=== PATIENT | female | born 2000 | race Caucasian/White ===

== ENCOUNTER 2020-03-02 11:10 | Outpatient (CLI) | payer BC, SELFPAY ==
[2020-03-02] VITALS (7 sets, daily range): BP systolic 118–133; BP diastolic 70–82; PULSE 68–93; TEMP 36.8; BMI 33.5
[2020-03-02 11:57] LABS: Hemoglobin 12.4 g/dL (12.0-15.0); Mean Corp Hgb Conc 33.5 g/dL (32-36); Mean Corpuscular Hgb 31.5 pg (27.0-32.0); Mean Corpuscular Volume 93.9 fL (81-99); Mean Platelet Vol. 10.5 fl (6.2-12.0); Platelet Count 228 K/mm3 (150-450); RBC Distribution Width CV 12.7 % (11.6-14.6); RBC Distribution Width SD 42.5 fl (35.1-43.9); Red Blood Count 3.94 M/mm3 (4.2-5.4); White Blood Count 9.1 K/mm3 (4.4-11.0)
[2020-03-02 12:02] LABS: Protein:Creat Ratio 225 mg/g CRE (0-200)
[2020-03-02 12:07] LABS: AST(SGOT) 17 U/L (15-37); Alanine Aminotransfer ALT/SGPT 17 U/L (13-56); Creatinine, Serum 0.59 mg/dL (0.55-1.02); EST Glomerular Filtration Rate 136 mL/min (>60); Est Glom Filt Rate - Afr Amer 164 mL/min (>60); Estimated Creatinine Clearance 119.29 ml/min; Uric Acid 3.9 mg/dL (2.6-6.0)
[2020-03-02 12:52] LABS: International Normalized Ratio 0.9; Partial Thromboplast Time 24.4 Seconds (24.1-36.2)
--- NOTE | 2020-03-02 13:01 | OB.TRI.NOTE ---
- Problem List (1) Headache Status: Acute (2) Blood pressure elevated without history of HTN Status: Acute History of Present Illness Date of Service: 03/02/20 Was patient seen by the physician?: Yes Reason For Visit: R/O PRE Date of Service: 03/02/20 Final LISET: 04/02/20 Gestational age: 35 Weeks and 4 Days History of Present Illness: Patient is a at 35.4 weeks gestation sent in from office for increased BP at home and woke up with headache today. BP elevated in office and protein noted in urine. No epigastric pain or vision changes. Rating headache 5/10 and has not taken Tylenol yet today. Allergies Penicillins Allergy (Verified 03/02/20 11:52) Hives Laboratory Studies: Laboratory Tests 03/02/20 03/02/20 03/02/20 Range/Units 11:30 11:30 11:30 WBC (4.4-11.0) K/mm3 RBC (4.2-5.4) M/mm3 Hgb (12.0-15.0) g/dL Hct (37-47) % MCV (81-99) fL MCH (27.0-32.0) pg MCHC (32-36) g/dL RDW Std Deviation (35.1-43.9) fl RDW Coeff of Marques (11.6-14.6) % Plt Count (150-450) K/mm3 MPV (6.2-12.0) fl PT 12.0 (11.7-14.9) SECONDS INR 0.9 APTT 24.4 (24.1-36.2) Seconds Creatinine 0.59 (0.55-1.02) mg/dL Estim Creat Clear Calc 119.29 ml/min Est GFR (MDRD) Af Amer 164 (>60) mL/min Est GFR (MDRD) Non-Af 136 (>60) mL/min Uric Acid 3.9 (2.6-6.0) mg/dL AST 17 (15-37) U/L ALT 17 (13-56) U/L U Random Total Protein 14.0 H (<11.9) mg/dL Urine Creatinine 62.20 (NO RANGE EST.) mg/dL Protein/Creatinin Ratio 225 H (0-200) mg/g CRE 03/02/20 Range/Units 11:30 WBC 9.1 (4.4-11.0) K/mm3 RBC 3.94 L (4.2-5.4) M/mm3 Hgb 12.4 (12.0-15.0) g/dL Hct 37.0 (37-47) % MCV 93.9 (81-99) fL MCH 31.5 (27.0-32.0) pg MCHC 33.5 (32-36) g/dL RDW Std Deviation 42.5 (35.1-43.9) fl RDW Coeff of Marques 12.7 (11.6-14.6) % Plt Count 228 (150-450) K/mm3 MPV 10.5 (6.2-12.0) fl PT (11.7-14.9) SECONDS INR APTT (24.1-36.2) Seconds Creatinine (0.55-1.02) mg/dL Estim Creat Clear Calc ml/min Est GFR (MDRD) Af Amer (>60) mL/min Est GFR (MDRD) Non-Af (>60) mL/min Uric Acid (2.6-6.0) mg/dL AST (15-37) U/L ALT (13-56) U/L U Random Total Protein (<11.9) mg/dL Urine Creatinine (NO RANGE EST.) mg/dL Protein/Creatinin Ratio (0-200) mg/g CRE Review of Systems Constitutional: Denies: Chills, Fever, Weight Change HEENT: Denies: Sinus Congestion, Sinus Drainage Cardiovascular: Denies: Chest Pain, Palpitations Respiratory: Denies: Cough, Shortness of breath at rest, Sputum production Gastrointestinal: Denies: Abdominal Pain, Nausea, Vomiting Genitourinary: Denies: Dysuria Neurological: Denies: Numbness, Tingling, Focal weakness Physical Exam Vitals: Vital Signs Temp Pulse BP 98.2 F 81 121/71 H 03/02/20 11:36 03/02/20 12:50 03/02/20 12:50 General: Alert Cardiovascular: Regular rate Lungs: Clear to auscultation, Normal air movement Abdomen: Non Tender, Non-Distended, No Hepato-splenomegaly Neurological: Cranial nerves II-XII grossly intact, Deep Tendon Reflexes 2+/4 and Symmetrical NST - FHR Rate Baby A Baseline: 140 Variability:: Moderate Accelerations:: 15 x 15 Decelerations:: None NST Reactive:: Yes FHR Category:: Category I Uterine Activity:: irregular contractions Impression/Plan at 35.4 weeks gestation with some increased blood pressures at home and dull headache. Pre-E labs within normal range P/C ratio < 300 Patient to follow up in office Thursday for BP check Discharge home with preeclampsia precautions Dr. Rooney agrees with plan of care
== END 2020-03-02 13:25 | disposition home or self-care (01) ==
LOC: WPOUT 11:25 → WP 11:26
PROVIDERS: Referring Provider Advanced Practice Midwife; Visit Provider Advanced Practice Midwife
DX: O26.893 Other specified pregnancy related conditions, third trimester (principal); Z3A.35 35 weeks gestation of pregnancy; R51 Headache
CPT/HCPCS: 36415; 59025; 59050; 82565; 82570; 84156; 84450; 84460; 84550; 85027; 85610; 85730; 99218; G0378

== ENCOUNTER → 2020-03-07 | Outpatient (CLI) | payer BC, SELFPAY ==
[2020-03-02 11:39] VITALS: BMI 33.5
== END | disposition home or self-care (01) ==
LOC: LABSPEC 11:52
PROVIDERS: Referring Provider Obstetrics & Gynecology; Visit Provider Obstetrics & Gynecology
DX: Z11.59 Encounter for screening for other viral diseases (principal)
CPT/HCPCS: 87635; G2023; U0003

== ENCOUNTER 2020-03-12 18:55 | Inpatient (IN) | payer BC, SELFPAY ==
[2020-03-02 11:39] VITALS: BMI 33.5
[2020-03-12 19:57] LABS: Absolute Lymphocyte Count 1.51 X10^3/uL (0.83-4.51); Absolute Neutrophil Count 5.9 X10^3/uL (2.0-7.7); Basophil# 0.02 X10^3/uL; Basophil% 0.2 % (0-1); Eosinophil# 0.06 X10^3/uL; Eosinophils% 0.7 % (0-5); Hematocrit 33.1 % (37-47); Hemoglobin 11.1 g/dL (12.0-15.0); Lymphocyte # 1.51 X10^3/ul (4.0); Lymphocyte % 18.8 % (19-41); Mean Corp Hgb Conc 33.5 g/dL (32-36); Mean Corpuscular Hgb 31.2 pg (27.0-32.0); Mean Platelet Vol. 11.2 fl (6.2-12.0); Monocyte% 6.2 % (0-10); NRBC Flagged by Analyzer 0 % (0-5); Neutrophil # 5.85 X10^3/uL (2.7-7.7); Neutrophil % 73.1 % (47-70); Platelet Count 211 K/mm3 (150-450); RBC Distribution Width CV 12.2 % (11.6-14.6); RBC Distribution Width SD 41.5 fl (35.1-43.9); Red Blood Count 3.56 M/mm3 (4.2-5.4)
[2020-03-12 20:07] VITALS: O2SAT 81
[2020-03-12 20:08] VITALS: TEMP 36.7
[2020-03-12 20:09] VITALS: BP 131/85; PULSE 71; O2SAT 98
[2020-03-12 20:19] VITALS: BMI 33.5
[2020-03-12] MEDS: miSOPROStol 100 MCG TABLET 25 MCG VAGINAL (21:10)
[2020-03-12 22:25] VITALS: TEMP 37
[2020-03-12 22:26] VITALS: BP 131/81; PULSE 71; O2SAT 99
[2020-03-13] VITALS (53 sets, daily range): BP systolic 107–172; BP diastolic 56–110; PULSE 51–240; TEMP 36.7–37.6; O2SAT 82–100
[2020-03-13] MEDS: miSOPROStol 25 MCG TABLET VAGINAL ×2 (01:12→05:11)
[2020-03-13] MEDS: 0.9% Normal Saline Single 100 ML IV.SOLN. IY (08:04)
--- NOTE | 2020-03-13 08:33 | PCM.HP.OB ---
History Date of Admission: 03/13/20 Final LISET: 04/02/20 Gestational age: 37 Weeks and 1 Days History of this : This is a 19 year-old, G 1P0 @ 37.1 weeks- GEST HTN here for IOL Allergies Penicillins Allergy (Verified 03/12/20 20:21) Hives Home Medications: Home Medications Ferrous Sulfate [Iron] 325 mg PO DAILY 03/02/20 Pnv No.95/Ferrous Fum/Folic AC [ Caplet] 1 tablet PO DAILY 03/02/20 Smoking Status: Never smoker Alcohol: None Number of Fetus(es): 1 History Past Pregnancies: Past Pregnancies Delivery Date Name GA/ Weeks Outcome Route Wt Infant Sex Labor Length Anesthesia Delivery Location Provider FOB Expected Delivery Method: Spontaneous Vaginal Review of Systems Constitutional: Denies: Anorexia Eyes: Denies: Blurred vision, Pain, Vision Change HEENT: Denies: Head Aches Cardiovascular: Denies: Chest Pain Respiratory: Denies: Cough, Shortness of Breath Gastrointestinal: Denies: Abdominal Pain Physical Exam Vitals: Vital Signs Temp Pulse BP Pulse Ox 98.1 F 80 143/110 H 99 03/13/20 07:30 03/13/20 08:05 03/13/20 08:05 03/13/20 07:19 General: Alert, Oriented x3 Abdomen: Soft, Non Tender, Non-Distended, Gravid Neurological: Cranial nerves II-XII grossly intact [employer]ANDB[employer] OPERATOR: Normal external genitalia Estimated gestational size: Appropriate for gestational size Presentation: Cephalic Cervix Dilation (cm): 1 Station: -3 Effacement (%): 50 Assessment/Plan All Active Problems Headache (Acute) Blood pressure elevated without history of HTN (Acute) This is a 19 year-old, @ 37.1 weeks- IOL for GEST HTN 1) admit to l&D 2) monitor fhr/toco 3) anticipate 4) s/p cytotec overnight- Transcervical stone placed- will start pitocin 5) Epidural if requested for pain
[2020-03-13] MEDS: Acetaminophen 325 MG Tablet PO (09:10)
[2020-03-13] MEDS: 0.9% Saline Lock 10 ML Syringe IV ×2 (10:29→23:11)
[2020-03-13] MEDS: Oxytocin 30 units/NS 500 ml 30 UNITS/500 ML IV.SOLN IV (10:33)
[2020-03-13] MEDS: Lactated Ringers 1,000 ML 50 ML IV (10:33)
--- NOTE | 2020-03-13 17:47 | PCM.PN.BLA ---
Progress Note pt seen at bedside, doing well. VE performed- 3-4/65/-2, AROM performed- large amt of clear fluid. IUPC and IFM placed. STROKE Vital Signs/Narrative: Vital Signs Temp Pulse BP Pulse Ox 03/13/20 17:28 74 135/84 H 03/13/20 17:27 70 141/90 H 03/13/20 16:10 240 H 82 03/13/20 16:09 99.0 F 136/77 H 03/13/20 15:57 71 99 03/13/20 15:09 98.8 F 74 129/79 H 99 03/13/20 14:15 66 98 03/13/20 14:14 99.0 F 109/56 L
[2020-03-13] MEDS: Lactated Ringers 500 ML 999 ML IV ×2 (18:08→22:14)
[2020-03-13] MEDS: fentaNYL-bupivacaine (epidural) 100 ML BAG EPIDURAL ×2 (19:35→23:19)
[2020-03-13] MEDS: Lactated Ringers 1,000 ML 200 ML IV (22:12)
[2020-03-13] MEDS: Amnioinfusion- 0.9% NS 1,000 ML IV.SOLN. 300 ML INTRA-UTER (23:10)
[2020-03-14] VITALS (33 sets, daily range): BP systolic 77–156; BP diastolic 52–93; PULSE 30–241; RESP 16; TEMP 36.4–39.2; O2SAT 80–100
[2020-03-14] MEDS: Lactated Ringers 1,000 ML 200 ML IV ×3 (03:33→15:24)
[2020-03-14] MEDS: fentaNYL-bupivacaine (epidural) 100 ML BAG EPIDURAL ×3 (03:48→15:18)
[2020-03-14] MEDS: Lactated Ringers 500 ML 999 ML IV (06:03)
[2020-03-14] MEDS: Amnioinfusion- 0.9% NS 1,000 ML IV.SOLN. 1000 ML INTRA-UTER (09:53)
[2020-03-14] MEDS: Ondansetron 4 MG/2 ML Vial IV (11:54)
[2020-03-14] MEDS: Acetaminophen 325 MG Tablet PO (12:45)
[2020-03-14] MEDS: Oxytocin 30 units/NS 500 ml 30 UNITS/500 ML IV.SOLN 334 UNITS IV (16:20)
--- NOTE | 2020-03-14 16:42 | PCM.OPRPT ---
Vaginal Delivery Maternal Presentation: Medically Indicated Induction Method of Induction: Pitocin, Guido Bulb, Amniotomy, Cytotec Medical Reason for Induction: - - gestational htn Amniotic Membrane Rupture Type: Artificial Amniotic Fluid Description: Clear Final LISET: 04/02/20 Final LISET Source: US <20 weeks Gestational age: 37 Weeks and 2 Days Date of Procedure: 03/14/20 Pre-Operative Diagnosis: labor, suspected triple I, maternal exhaustion, prolonged declerations Post-Operative Diagnosis: same Surgery/ Procedure Performed: Vacuum Assisted Vaginal Delivery - outlet Type of Anesthesia: Epidural Description of Procedure: Patient was pushing with excellent effort. She was pushing to +4 station. The scalp was labia approximately 2 cm. Position was MARY. Epidural was adequate and a Guido catheter was in place. Estimated weight was less than 4500 g clinically and pelvis was adequate to expect vaginal delivery. Fetus was having intermittent prolonged decelerations with pushing. Patient was also getting very fatigued but was making good progress during the second stage. I assessed the patient and after discussion of risk benefits and alternatives to attempted vacuum assisted vaginal delivery, patient and her partner agreed to proceed. Vacuum was placed on the flexion point and pressure was created to 550 mmHg. I pulled with 1 contraction to . Patient was then given a brief rest and the vacuum was removed and she pushed and delivered the baby spontaneously over second-degree perineal laceration. There were no pop offs. There was a tight nuchal cord that I could not easily reduce but is able to push it behind the anterior shoulder and the anterior shoulder delivered with gentle traction and maternal pushing without difficulty. The cord then slipped the rest of the way behind the baby is the remainder the infant delivered with maternal pushing efforts only. The was placed on the maternal abdomen where it was stimulated and was vigorous. The cord was clamped and cut after 1 minute. The left vaginal sulcus tear and second-degree perineal laceration were repaired with 2-0 Vicryl suture in a running standard fashion without difficulty. Cervix and the remainder the vagina were intact. Sponge and needle counts were correct. Vaginal sweep was completed by me. Presentation: MARY Placental Delivery Description: Spontaneous Placenta Disposition: [facility] Cord Vessel Description: 3 Vessels Nuchal Cord Compression: Without compression Cord Gases drawn per routine: ABG, VBG Cord Entanglement: Around neck x 1, tight Drain: Guido to straight drain Estimated Blood Loss: 500 Infant A gender: Male Episiotomy Description: None Laceration: Vaginal Extension/lac - left, 2nd degree - perineal Medications given after delivery: IV Pitocin Complications: None
[2020-03-14] MEDS: Naproxen 250 MG Tablet 500 MG PO (17:56)
[2020-03-14] MEDS: Acetaminophen 500 MG Tablet 1000 MG PO (17:56)
[2020-03-14] MEDS: 0.9% Saline Lock 10 ML Syringe IV ×2 (18:58→21:43)
[2020-03-15] VITALS (10 sets, daily range): BP systolic 103–128; BP diastolic 57–76; PULSE 72–103; RESP 14–16; TEMP 36.3–37.1; O2SAT 99
[2020-03-15] MEDS: 0.9% Saline Lock 10 ML Syringe IV ×2 (04:45→05:31)
--- NOTE | 2020-03-15 09:00 | PCM.PN.OB ---
Subjective: Denies MONSIVAIS or visual changes or epigastric pain. Pain well controlled, average lochia - Physical Exam Vitals/I&O's: Vital Signs Temp Pulse Resp BP Pulse Ox 97.3 F L 86 14 123/57 H 100 03/15/20 03:17 03/15/20 08:39 03/15/20 03:17 03/15/20 08:39 03/14/20 17:19 Oxygen Delivery Method Room Air Weight: 83.28 kg Body Mass Index (BMI) 33.5 Intake and Output for Last 24 Hours 03/13/20 03/14/20 03/15/20 23:59 23:59 23:59 Intake Total 3536.14 / 3536.14 5091.26 / 5091.26 106 / 106 Output Total 1200 / 1200 2049 / 2049 600 / 600 Balance 2336.14 / 2336.14 3041.26 / 3041.26 -494 / -494 General: Alert, Cooperative, No apparent distress Current Medications Acetaminophen (Tylenol) 325 - 650 mg PO Q4H PRN PRN PRN Reason: Pain Score 1-3/10 Last Admin: 03/14/20 12:45 Dose: 650 mg Documented by: Acetaminophen (Tylenol) 1,000 mg PO Q8H PRN PRN PRN Reason: Pain Score 1-3/10 Last Admin: 03/14/20 17:56 Dose: 1,000 mg Documented by: Al Hydroxide/Mg Hydroxide (Mylanta Ii) 15 - 30 ml PO Q4H PRN PRN PRN Reason: INDIGESTION Bisacodyl (Dulcolax) 10 mg RECTAL UD PRN PRN Reason: If no BM Citric Acid/Sodium Citrate (Bicitra) 30 ml PO X1 PRN PRN Reason: Section Dibucaine (Dibucaine) 1 applic TOPICAL TID PRN PRN; Protocol PRN Reason: Discomfort Ephedrine Sulfate () 10 mg IV Q10M PRN PRN Reason: hypotension Ephedrine Sulfate () 10 mg IM Q30M PRN PRN Reason: hypotension Fentanyl Citrate (Sublimaze (100mcg Ampule)) 25 - 50 mcg IV Q2H PRN PRN PRN Reason: Pain Score 4-10/10 Fentanyl/Bupivacaine/Sodium Chlor () 0 ml EPIDURAL UD YOVANNY; Protocol Last Admin: 03/14/20 15:18 Dose: 100 ml Documented by: Ferrous Sulfate (Ferrous Sulfate) 325 mg PO 1200 YOVANNY Hydrocortisone (Hytone) 1 applic TOPICAL TID PRN PRN; Protocol PRN Reason: Discomfort Lactated Ringer's () 500 mls @ 999 mls/hr IV .Q31M PRN PRN Reason: Epidural Last Infusion: 03/13/20 18:40 Dose: Infused Documented by: Lactated Ringer's () 500 mls @ 999 mls/hr IV .Q31M PRN PRN Reason: Corrective Measures Last Infusion: 03/14/20 06:34 Dose: Infused Documented by: Lactated Ringer's () 1,000 mls @ 50 mls/hr IV .Q20H [facility] Last Admin: 03/15/20 08:29 Dose: Not Given Documented by: Oxytocin/Sodium Chloride () 30 units in 500 mls @ 2 mls/hr IV .Q250H [facility] Last Infusion: 03/14/20 16:18 Dose: Infused Documented by: Naloxone HCl 4 mg/ Dextrose 504 mls @ 0 mls/hr IV .Q0M PRN; Protocol PRN Reason: To maintain Resp. rate >10 Clindamycin Phosphate 900 mg/ (Dextrose) 106 mls @ 150 mls/hr IV Q8H [facility] Last Infusion: 03/15/20 05:31 Dose: Infused Documented by: Methylergonovine Maleate (Methergine) 0.2 mg IM X1 PRN PRN Reason: Excess bleeding/uterine atony Nalbuphine HCl (Nubain) 5 mg IV Q3H PRN PRN PRN Reason: ITCHING Naloxone HCl (Narcan) 0.02 mg IV Q1M PRN PRN Reason: RR< 10 AND PT UNRESPONSIVE Naproxen (Naprosyn) 500 mg PO Q8H PRN PRN PRN Reason: Pain Score 1-3/10 Last Admin: 03/14/20 17:56 Dose: 500 mg Documented by: Ondansetron HCl (Zofran) 4 mg IV Q4H PRN PRN PRN Reason: NAUSEA Last Admin: 03/14/20 11:54 Dose: 4 mg Documented by: Ondansetron HCl (Zofran) 4 mg IV Q4H PRN PRN PRN Reason: Nausea Multivit/Folic Acid/Iron (Prenatabs Fa) 1 tablet PO DAILY@1200 YOVANNY Prochlorperazine Edisylate (Compazine Iv) 10 mg IV Q6H PRN PRN PRN Reason: NAUSEA Senna/Docusate Sodium (Senokot-S, Bonnie-Colace) 1 - 2 tablet PO DAILY PRN PRN PRN Reason: Constipation Simethicone (Mylicon) 80 mg PO PCHS PRN PRN Reason: Indigestion/Stomach pain Sodium Chloride () 10 - 40 ml IV X1 PRN PRN Reason: SALINE FLUSH Last Admin: 03/15/20 05:31 Dose: 10 ml Documented by: Sodium Chloride () 1,000 ml INTRA-UTER UD YOVANNY Last Admin: 03/15/20 08:30 Dose: Not Given Documented by: Sodium Chloride () 5 - 15 ml IV UD PRN PRN Reason: SALINE FLUSH Last Admin: 03/14/20 18:58 Dose: 10 ml Documented by: Medical Necessity - Tobacco Use Smoking Status: Never smoker Assessment/Plan All Active Problems Headache (Acute) Blood pressure elevated without history of HTN (Acute) PPD#1 doing well afebrile doing well routine care BP stable likely d/c tomorrow
[2020-03-15] MEDS: Ferrous Sulfate 325 MG Tablet PO (14:49)
[2020-03-16 02:48] VITALS: BP 120/76; PULSE 86
[2020-03-16 02:50] VITALS: BP 120/76; PULSE 86; RESP 16; TEMP 36.8; O2SAT 96
[2020-03-16 08:20] VITALS: BP 121/78; PULSE 71
[2020-03-16 09:10] VITALS: BP 121/78; PULSE 70; RESP 17; TEMP 36.8
--- NOTE | 2020-03-16 10:33 | PCM.PN.OB ---
Subjective: Doing well per patient and nursing staff. Ambulating and taking PO without difficulty. Voiding and passing flatus. . No complaints - Physical Exam Vitals/I&O's: Vital Signs Temp Pulse Resp BP Pulse Ox 98.2 F 70 17 121/78 H 96 03/16/20 09:10 03/16/20 09:10 03/16/20 09:10 03/16/20 09:10 03/16/20 02:50 Oxygen Delivery Method Room Air Weight: 183 lb 9.6 oz Body Mass Index (BMI) 33.5 Intake and Output for Last 24 Hours 03/14/20 03/15/20 03/16/20 23:59 23:59 23:59 Intake Total 5091.26 / 5091.26 106 / 106 Output Total 2049 / 2049 600 / 600 Balance 3041.26 / 3041.26 -494 / -494 General: Alert, Oriented x3, Cooperative HEENT: Atraumatic, Normocephalic Neck: Trachea Midline Lungs: Clear to auscultation, Normal air movement, No rhonchi, No wheeze Cardiovascular: Regular rate, Regular Rhythm, No murmurs Abdomen: Bowel Sounds Present, Non Tender - fundus firm 2 below U Extremities: Edema - +1 BLE edema pitting. No clonus Neurological: Deep Tendon Reflexes 2+/4 and Symmetrical Psych/Mental Status: Normal Affect, Appropriate Current Medications Acetaminophen (Tylenol) 1,000 mg PO Q8H PRN PRN PRN Reason: Pain Score 1-3/10 Last Admin: 03/14/20 17:56 Dose: 1,000 mg Documented by: Al Hydroxide/Mg Hydroxide (Mylanta Ii) 15 - 30 ml PO Q4H PRN PRN PRN Reason: INDIGESTION Bisacodyl (Dulcolax) 10 mg RECTAL UD PRN PRN Reason: If no BM Citric Acid/Sodium Citrate (Bicitra) 30 ml PO X1 PRN PRN Reason: Section Dibucaine (Dibucaine) 1 applic TOPICAL TID PRN PRN; Protocol PRN Reason: Discomfort Ephedrine Sulfate () 10 mg IV Q10M PRN PRN Reason: hypotension Ephedrine Sulfate () 10 mg IM Q30M PRN PRN Reason: hypotension Ferrous Sulfate (Ferrous Sulfate) 325 mg PO 1200 YOVANNY Last Admin: 03/15/20 14:49 Dose: 325 mg Documented by: Hydrocortisone (Hytone) 1 applic TOPICAL TID PRN PRN; Protocol PRN Reason: Discomfort Naloxone HCl 4 mg/ Dextrose 504 mls @ 0 mls/hr IV .Q0M PRN; Protocol PRN Reason: To maintain Resp. rate >10 Naloxone HCl (Narcan) 0.02 mg IV Q1M PRN PRN Reason: RR< 10 AND PT UNRESPONSIVE Naproxen (Naprosyn) 500 mg PO Q8H PRN PRN PRN Reason: Pain Score 1-3/10 Last Admin: 03/14/20 17:56 Dose: 500 mg Documented by: Ondansetron HCl (Zofran) 4 mg IV Q4H PRN PRN PRN Reason: NAUSEA Last Admin: 03/14/20 11:54 Dose: 4 mg Documented by: Ondansetron HCl (Zofran) 4 mg IV Q4H PRN PRN PRN Reason: Nausea Multivit/Folic Acid/Iron (Prenatabs Fa) 1 tablet PO DAILY@1200 YOVANNY Last Admin: 03/15/20 14:49 Dose: 1 tablet Documented by: Prochlorperazine Edisylate (Compazine Iv) 10 mg IV Q6H PRN PRN PRN Reason: NAUSEA Senna/Docusate Sodium (Senokot-S, Bonnie-Colace) 1 - 2 tablet PO DAILY PRN PRN PRN Reason: Constipation Simethicone (Mylicon) 80 mg PO PCHS PRN PRN Reason: Indigestion/Stomach pain Sodium Chloride () 10 - 40 ml IV X1 PRN PRN Reason: SALINE FLUSH Last Admin: 03/15/20 05:31 Dose: 10 ml Documented by: Sodium Chloride () 5 - 15 ml IV UD PRN PRN Reason: SALINE FLUSH Last Admin: 03/14/20 18:58 Dose: 10 ml Documented by: Medical Necessity - Tobacco Use Smoking Status: Never smoker Assessment/Plan All Active Problems Headache (Acute) Blood pressure elevated without history of HTN (Acute) This is a 19 year-old, PPD #2 Vacuum extracted vaginal delivery Gestational HTN Suspected Triple I P: 1) Routine and instructions reviewed 2) Will get OTC Motrin for pain relief 3) Follow up in 3 days in office for BP check 4) Follow up in 2 weeks for virtual visit and 6 weeks for visit 5) Discharge home today.
--- NOTE | 2020-03-16 10:35 | DCINST_ITS ---
Discharge Diet: No Restrictions Discharge Activity: Return to Normal Activity, May not drive while taking narcotic pain medications., May Shower May resume sexual activity in: 4-6 weeks Weight Bearing Status: Full weight bearing Additional Activity Instructions:: Nothing in the vagina for 4-6 weeks. You may return to work/school in 6 weeks. Call your doctor if your incision/area has: Continuous Slow Oozing, Sudden Increased Bleeding, Increased Pain/ Swelling, Increased Redness, Foul Smelling Discharge Call your doctor if you observe: Fever of 101 or Higher, Inability to urinate, Inability to have a bowel movement, Using more than one pad per hour, Shortness of breath, Dizziness, Chest pain, Increased palpitations (irregular heartbeat), Calf discomfort, Uncontrolled pain Additional Instructions: If you experience any of the following, contact your healthcare provider. * Bleeding that soaks a pad every hour for 2 hours * Fever 100.4 or higher * Unrelieved incision or abdominal pain * Swelling, redness, discharge or bleeding from your incision or episiotomy site * Your incision begins to separate * Problems urinating (including inability to urinate or burning while urinating). * Visual changes * Severe headache * Flu-like symptoms * Pain or redness in one of both of your breasts * Pain, warmth, tenderness or swelling in your legs, especially the calf area * Frequent nausea and vomiting * Symptoms of depression or anxiety If you experience any of the following, call 911 or go to the nearest Emergency Room. * Chest pain * Problems breathing * Seizure activity * Partial or complete paralysis of a body part, slurred speech, weakness or drooping of the face, or a sudden inability to walk or hold your balance Allergies/Adverse Reactions: Allergies Penicillins Allergy (Verified 03/12/20 20:21) Hives Medications to take at Discharge Ferrous Sulfate [Iron] 325 mg PO DAILY 03/02/20 Pnv No.95/Ferrous Fum/Folic AC [ Caplet] 1 tablet PO DAILY 03/02/20 Please Follow Up With: Mary Jo Aguirre MD When: Call to make an appointment with your doctor in 3 days for blood pressure check, 2 weeks for virtual visit, 6 weeks. Primary Care Physician: Pilar Julian MD [Primary Care Provider] - Test Results: Test results from this visit will be discussed in further detail at your follow- up appointment, if applicable.
--- NOTE | 2020-03-19 08:05 | PCM.DC.SUM ---
Discharge Date and Diagnosis Date of Admission: 03/12/20 Date of Discharge: 03/16/20 Hospital Course and Treatment Consultations 03/12/20 19:13 Consult: Anesthesia Routine Comment: Reason For Exam: Labor Operations: - - Outlet vacuum-assisted vaginal delivery with second-degree perineal laceration and left vaginal vault sulcus tear repaired. Procedures: None Summary of Care Provided: Martina is a 19-year-old nulliparous female who was admitted on 03/12/2024 Cytotec cervical ripening for gestational hypertension. She underwent Cytotec ripening overnight. The next morning she had a Guido catheter placed and was started on Pitocin. Duction progressed very slowly she entered the active phase of labor. Her active phase progressed normally. She progressed to complete and pushing. After several hours she was exhausted and was having variables with each pushing effort. She had progressed to plus 4 out of 5 station and the position was MARY. I offered her trial of outlet assisted vacuum delivery. She agreed to proceed. This was successful. Patient had a second-degree perineal laceration and left vaginal sulcus tear that were repaired and hemostatic. the patient's course was unremarkable. Her blood pressures were stable. day #2 she had not required any medication for her blood pressure. She was discharged home to follow-up within 1 week for blood pressure check and to call with any symptoms of severe preeclampsia. was doing well. - Physical Exam Vitals/I&O's: Vital Signs Temp Pulse Resp BP Pulse Ox 98.2 F 70 17 121/78 H 96 03/16/20 09:10 03/16/20 09:10 03/16/20 09:10 03/16/20 09:10 03/16/20 02:50 Oxygen Delivery Method Room Air Weight: 83.28 kg Body Mass Index (BMI) 33.5 Discharge Diet: No Restrictions Discharge Activity: Return to Normal Activity, May not drive while taking narcotic pain medications., May Shower May resume sexual activity in: 4-6 weeks Weight Bearing Status: Full weight bearing Additional Activity Instructions:: Nothing in the vagina for 4-6 weeks. You may return to work/school in 6 weeks. Call your doctor if your incision/area has: Continuous Slow Oozing, Sudden Increased Bleeding, Increased Pain/ Swelling, Increased Redness, Foul Smelling Discharge Call your doctor if you observe: Fever of 101 or Higher, Inability to urinate, Inability to have a bowel movement, Using more than one pad per hour, Shortness of breath, Dizziness, Chest pain, Increased palpitations (irregular heartbeat), Calf discomfort, Uncontrolled pain Home Medications: Medications to take at Discharge Ferrous Sulfate [Iron] 325 mg PO DAILY 03/02/20 Pnv No.95/Ferrous Fum/Folic AC [ Caplet] 1 tablet PO DAILY 03/02/20 Primary Care Physician: Pilar Julian MD [Primary Care Provider] - Please Follow Up With: Mary Jo Aguirre MD Medical Necessity - Tobacco Use Smoking Status: Never smoker Meaningful Use Info Meaningful Use Diagnoses (Choose all that apply): None applicable
== END 2020-03-16 11:10 | disposition home or self-care (01) | DRG 807 ==
PROVIDERS: Admitting Provider Obstetrics & Gynecology; PCP Family Medicine; Referring Provider Advanced Practice Midwife; Visit Provider Advanced Practice Midwife
DX: O13.4 Gestational [pregnancy-induced] hypertension without significant proteinuria, complicating childbirth (principal); Z37.0 Single live birth; O76 Abnormality in fetal heart rate and rhythm complicating labor and delivery; O69.81X0 Labor and delivery complicated by cord around neck, without compression, not applicable or unspecified; O70.1 Second degree perineal laceration during delivery; Z3A.37 37 weeks gestation of pregnancy
CPT/HCPCS: 59025; 59050; 85025; 86850; 86900; 86901; 99218; J7030; J7120; A4216; G0378; J2405